=== PATIENT | female | born 1970 | race Caucasian/White ===

== ENCOUNTER 2018-12-22 03:50 | Emergency (ER) | payer OTHER ==
[~2018-12-22] VITALS: Ht 167.6 cm; Wt 102.1 kg
[2018-12-22 03:58] VITALS: Ht 167.6 cm; Wt 102.1 kg
[2018-12-22 07:09] VITALS: BP 154/85
== END 2018-12-22 07:09 | disposition home or self-care (01) ==
LOC: ED 03:50
DX: M62.838 Other muscle spasm (principal); M54.2 Cervicalgia; F32.9 Major depressive disorder, single episode, unspecified; R51 Headache
CPT/HCPCS: J1885; J2270